=== PATIENT | female | born 1980 | race Caucasian/White ===

== ENCOUNTER 2016-10-08 19:15 | Emergency (ER) | payer SELFPAY ==
[~2016-10-08] VITALS: Ht 175.3 cm; Wt 82.0 kg
[~2016-10-08 19:15] MED LIST: ALPR.25 PO; AMPH1TAB29 PO; VORT20TA PO
[2016-10-08 19:17] VITALS: BP 133/92; PULSE 83; RESP 18; TEMP 98.3; O2SAT 100
[2016-10-09 01:54] VITALS: BP 157/93; PULSE 86; RESP 16; TEMP 97.6; O2SAT 100
[2016-10-09] MEDS ORDERED: ZOLO100T PO (01:55)
[2016-10-09 02:59] LABS: BASOPHIL # 0.1 TH/MM3 (0-0.2); BASOPHIL % 0.9 % (0.0-2.0); EOSINOPHIL # 0.1 TH/MM3 (0-0.4); EOSINOPHIL % 0.9 % (0.0-4.0); HEMATOCRIT 41.5 % (35.0-46.0); HEMO FLAGS DIFF FINAL; LYMPH % 37.3 % (9.0-44.0); LYMPHOCYTE # 4.1 TH/MM3 (1.0-4.8); MEAN CELL VOLUME 87.9 FL (80.0-100.0); MEAN CORPUSCULAR HEMOGLOBIN 29.6 PG (27.0-34.0); MEAN CORPUSCULAR HGB CONC 33.7 % (32.0-36.0); MONO % 5.8 % (0.0-8.0); NEUT % 55.1 % (16.0-70.0); PLATELET COUNT 287 TH/MM3 (150-450); RED BLOOD COUNT 4.72 MIL/MM3 (4.00-5.30); WHITE BLOOD COUNT 10.9 TH/MM3 (4.0-11.0)
[2016-10-09] MEDS ORDERED: ONDANSETRON HCL 4 MG/2 ML VIAL IV ONE (03:00)
[2016-10-09] MEDS ORDERED: SODIUM CHLOR 0.9% 1000 ML INJ 1,000 ML IV ONE (03:00)
--- NOTE | 2016-10-09 03:02 | RADRPT ---
EXAM DATE/TIME: 10/09/2016 02:47 [facility] COMPARISON: CT ABDOMEN & PELVIS W CONTRAST, June 13, 2016, 20:53. INDICATIONS : Patient has had blood in stool and abdominal pain for two months. MEDICAL HISTORY : None. SURGICAL HISTORY : None. ENCOUNTER: Initial ACUITY: 2 months PAIN SCORE: 5/10 LOCATION: Bilateral Abdomen. FINDINGS: Supine and upright views of the abdomen were performed. The abdominal bowel gas pattern is normal. No air fluid levels are seen. No abnormal masses, calcifications, or organomegaly is seen. The visu alized lower lungs are clear. No evidence of free intraperitoneal gas. The osseous structures are u nremarkable. CONCLUSION: Normal examination. Miguel Ángel Martins MD on October 09, 2016 at 3:00 Board Certified Radiologist. This report was verified electronically.
[2016-10-09 03:24] LABS: ALKALINE PHOSPHATASE 108 U/L (45-117); TOTAL BILIRUBIN ADULT 0.5 MG/DL (0.2-1.0)
[2016-10-09 03:31] LABS: ALT (GPT) 24 U/L (10-53); ANION GAP 7 MEQ/L (5-15); AST (GOT) 22 U/L (15-37); BICARBONATE 26.8 MEQ/L (21.0-32.0); BLOOD UREA NITROGEN 7 MG/DL (7-18); CHLORIDE 105 MEQ/L (98-107); GLOMERULAR FILTRATION RATE 75 ML/MIN (>89); POTASSIUM 3.7 MEQ/L (3.5-5.1); SODIUM (NA) 139 MEQ/L (136-145)
--- NOTE | 2016-10-09 03:34 | PD ---
HPI Chief Complaint: GI Complaint Time Seen by Provider: 02:05 Travel History International Travel<30 days: No Contact w/Intl Traveler<30days: No Traveled to known affect area: No History of Present Illness HPI The patient is a 35 year old female who presents to the [facility] emergency department with a history of abdominal pain that she reports is been present for the last couple of months. She reports that it has been associated with vomiting, intermittent constipation, and intermittent diarrhea with blood in her stool, blood in her urine, and persistent vaginal bleeding since having a Nexplanon replaced in her arm in April 2016. She reports that with the first Nexplanon she had no vaginal bleeding for 3 years. The patient reports that she is concerned about her symptoms as her mother has been diagnosed with colon cancer. The patient denies having a primary care physician. She reports that she does have a history of kidney stones. She reports that she has never had colonoscopy. The patient reports that she last moved her bowels earlier today. The patient denies any recent fevers, cough, congestion, neck pain, chest pain, shortness of breath, or neurologic symptoms. PFS Past Medical History Narrative Medical The patient's past medical history is significant for kidney stones, anxiety and depression, attention deficit hyperactivity disorder, fibromyalgia, ovarian cysts. Hx Anticoagulant Therapy: No Arthritis: Yes Asthma: No Autoimmune Disease: Yes Anxiety: Yes Depression: Yes Heart Rhythm Problems: No Cancer: No Cardiovascular Problems: No High Cholesterol: No Chemotherapy: No Chest Pain: No Congestive Heart Failure: No COPD: No Cerebrovascular Accident: No Diabetes: No Diminished Hearing: No Endocrine: No Gastrointestinal Disorders: Yes GERD: No Genitourinary: Yes Headaches: No Hiatal Hernia: No Hypertension: No Immune Disorder: No Implanted Vascular Access Dvce: Yes Kidney Stones: Yes Musculoskeletal: Yes Neurologic: Yes Psychiatric: Yes Reproductive: No Respiratory: No Immunizations Current: Yes Migraines: No Radiation Therapy: No Renal Failure: No Seizures: No Sleep Apnea: No Thyroid Disease: No Ulcer: No Tetanus Vaccination: < 5 Years Influenza Vaccination: No ?: Not LMP: IRREGULAR Ovarian Cysts: Yes (3 surgeries) Past Surgical History Abdominal Surgery: Yes (DAVID HERNIA REPAIR A CHILD) Body Medical Devices: NEXAPLON RIGHT ARM. Cardiac Surgery: No Ear Surgery: No Endocrine Surgery: No Eye Surgery: No Genitourinary Surgery: Yes (BILATERAL RENAL STENTS/LITHOTRIPSY) Gynecologic Surgery: Yes (ruptured ovary 02) Hysterectomy: No Oral Surgery: No Thoracic Surgery: No Other Surgery: Yes (BILAT. INGUINAL HERNIA REPAIRS A CHILD) Social History Alcohol Use: No Tobacco Use: No Substance Use: No (Denies illicit drug use) Allergies-Medications (Allergen,Severity, Reaction): Coded Allergies: Tramadol (Verified Allergy, Intermediate, RASH, 10/09/16) *MDRO Multi-Drug Resistant Organism (Verified Adverse Reaction, Unknown, ) MRSA PCR Screen POSITIVE - 08/01/2015 Reported Meds & Prescriptions Reported Meds & Active Scripts Active Bentyl (Dicyclomine HCl) 10 Mg Cap 10 Mg PO TID PRN Zofran Odt (Ondansetron Odt) 4 Mg Tab 4 Mg SL Q6HR PRN Omeprazole 40 Mg Cap 40 Mg PO DAILY Reported Zoloft (Sertraline HCl) 100 Mg Tab 100 Mg PO DAILY Xanax (Alprazolam) 0.25 Mg Tab Unknown Dose PO Q4H PRN Adderall (Amphetamine-Dextroamphetamine) 5 Mg Tab Unknown Dose PO BID Avoid late evening doses. Space doses at least 4 to 6 hours if more than once/day dosing. Review of Systems Except as stated in HPI: all other systems reviewed are Neg General / Constitutional: No: Fever Eyes: No: Visual changes HENT: No: Headaches Cardiovascular: No: Chest Pain or Discomfort Respiratory: No: Shortness of Breath Gastrointestinal: Positive: Nausea, Vomiting, Diarrhea, Abdominal Pain, Hematochezia, Constipation, Changes in Bowel Habits, Indigestion, Loss of Appetite Genitourinary: Positive: Hematuria, Vaginal Bleeding, No: Urgency, Frequency, Dysuria Musculoskeletal: No: Pain Skin: No Rash Neurologic: No: Weakness, Focal Abnormalities, Change in Mentation, Sensory Disturbance Psychiatric: No: Depression Endocrine: No: Polydipsia Hematologic/Lymphatic: No: Easy Bruising Physical Exam Narrative General: The patient is a well-developed well-nourished female in no acute distress. Head and Neck exam: Head is normocephalic atraumatic. Eyes: Pupils are equal round and reactive to light. Nose: Midline septum with pink mucous membranes Mouth: Dentition unremarkable. Moist mucus membranes. Posterior oropharynx is not erythematous. No tonsillar hypertrophy. Uvula midline. Airway patent. Neck: No palpable lymphadenopathy. No nuchal rigidity. No thyromegaly. Cardiovascular: Regular rate and rhythm without murmurs, gallops, or rubs. Lungs: Clear to auscultation bilaterally. No wheezes, rhonchi, or rales. Abdomen: Soft, reported discomfort on palpation of the midepigastric area. No other tenderness on palpation of the quadrants of the abdomen. No guarding, rebound, or rigidity. Normal bowel sounds are audible. No tenderness on palpation of McBurney's point. Negative Mccollum's sign. Extremities: No clubbing, cyanosis, or edema. 2+ pulses in all 4 extremities. Back: No spinous process tenderness to palpation. No costovertebral angle tenderness to palpation. Neurologic Exam: Grossly nonfocal. Skin Exam: No rash noted. Intact skin that is warm and dry. RECTAL EXAM: No masses or tenderness, stool is dark brown. The patient's stool is negative. Data Data Last Documented VS Vital Signs Date Time Temp Pulse Resp B/P Pulse Ox O2 Delivery O2 Flow Rate FiO2 10/09/16 01:54 97.6 86 16 157/93 100 Room Air Orders Complete Blood Count With Diff (10/09/16 02:17) Comprehensive Metabolic Panel (10/09/16 02:17) Lipase (10/09/16 02:17) Urinalysis - C+S If Indicated (10/09/16 02:19) Abdomen, Flat & Upright (10/09/16 02:19) Iv Access Insert/Monitor (10/09/16 02:19) Ecg Monitoring (10/09/16 02:19) Oximetry (10/09/16 02:19) Drug Screen, Random Urine (10/09/16 02:19) Ed Urine Pregnancytest Poc (10/09/16 02:19) Sodium Chlor 0.9% 1000 Ml Inj (Ns 1000 M (10/09/16 03:00) Ondansetron Inj (Zofran Inj) (10/09/16 03:00) C-Reactive Protein (Crp) (10/09/16 02:45) Ct Abd/Pel W/O Iv Contrast (10/09/16 03:28) Acetaminophen (Tylenol) (10/09/16 03:45) Acetamin-Hydrocod 325-5 Mg ([place] 5-325 (10/09/16 05:00) Labs Laboratory Tests Test 10/09/16 10/09/16 02:45 04:15 White Blood Count 10.9 TH/MM3 Red Blood Count 4.72 MIL/MM3 Hemoglobin 14.0 GM/DL Hematocrit 41.5 % Mean Corpuscular Volume 87.9 FL Mean Corpuscular Hemoglobin 29.6 PG Mean Corpuscular Hemoglobin 33.7 % Concent Red Cell Distribution Width 15.0 % Platelet Count 287 TH/MM3 Mean Platelet Volume 7.9 FL Neutrophils (%) (Auto) 55.1 % Lymphocytes (%) (Auto) 37.3 % Monocytes (%) (Auto) 5.8 % Eosinophils (%) (Auto) 0.9 % Basophils (%) (Auto) 0.9 % Neutrophils # (Auto) 6.0 TH/MM3 Lymphocytes # (Auto) 4.1 TH/MM3 Monocytes # (Auto) 0.6 TH/MM3 Eosinophils # (Auto) 0.1 TH/MM3 Basophils # (Auto) 0.1 TH/MM3 CBC Comment DIFF FINAL Differential Comment Sodium Level 139 MEQ/L Potassium Level 3.7 MEQ/L Chloride Level 105 MEQ/L Carbon Dioxide Level 26.8 MEQ/L Anion Gap 7 MEQ/L Blood Urea Nitrogen 7 MG/DL Creatinine 0.85 MG/DL Estimat Glomerular Filtration 75 ML/MIN Rate Random Glucose 80 MG/DL Calcium Level 9.4 MG/DL Total Bilirubin 0.5 MG/DL Aspartate Amino Transf 22 U/L (AST/SGOT) Alanine Aminotransferase 24 U/L (ALT/SGPT) Alkaline Phosphatase 108 U/L C-Reactive Protein 0.40 MG/DL Total Protein 7.7 GM/DL Albumin 4.3 GM/DL Lipase 148 U/L Urine Color YELLOW Urine Turbidity CLEAR Urine pH 7.0 Urine Specific [place] 1.007 Urine Protein NEG mg/dL Urine Glucose (UA) NEG mg/dL Urine Ketones NEG mg/dL Urine Occult Blood NEG Urine Nitrite NEG Urine Bilirubin NEG Urine Urobilinogen LESS THAN 2.0 MG/DL Urine Leukocyte Esterase NEG Urine RBC 1 /hpf Urine WBC 1 /hpf Urine Squamous Epithelial 1 /hpf Cells Microscopic Urinalysis Comment CULT NOT INDICATED Urine Opiates Screen NEG Urine Barbiturates Screen NEG Urine Amphetamines Screen NEG Urine Benzodiazepines Screen POS Urine Cocaine Screen NEG Urine Cannabinoids Screen NEG MDM Medical Decision Making Medical Screen Exam Complete: Yes Emergency Medical Condition: Yes Medical Record Reviewed: Yes Interpretation(s) Last Impressions Abdomen/Pelvis CT 10/09/16 0328 Signed Impressions: Service Date/Time: Sunday, October 09, 2016 03:56 - CONCLUSION: Normal examination. Miguel Ángel Martins MD Abdomen X-Ray 10/09/16 0219 Signed Impressions: Service Date/Time: Sunday, October 09, 2016 02:47 - CONCLUSION: Normal examination. Miguel Ángel Martins MD Differential Diagnosis GI bleed, versus colitis, versus inflammatory bowel disease, versus constipation versus gastroenteritis, versus pyelonephritis, versus kidney stone Narrative Course During the course of the patients emergency department visit, the patients history, examination, and differential diagnosis were reviewed with the patient. The patient had IV access obtained and blood work sent for analysis. The patient was placed on a cardiac cath lab radiology technologist with oximetry and blood pressure monitoring. The patient was provided normal saline 1 L IV fluid bolus, Zofran 4 mg IV, Tylenol 650 mg by mouth 1. The patient refused the Tylenol she reports that she has been taking this and it has not helped. The patient was given Lortab 5 mg by mouth 1. The patients laboratory studies were reviewed and remarkable for urinalysis was unremarkable. CBC shows no acute abnormality. Hemoccult testing was negative on rectal exam. CMP is unremarkable. Lipase within normal limits. Radiology studies were reviewed and remarkable for an abdominal flat and upright shows no acute abnormality. CT scan of the abdomen and pelvis showed no acute abnormality. The patient's irregular vaginal bleeding is likely related to the Nexplanon that was placed as the symptoms began after having it placed and this form of control is associated with irregular vaginal bleeding. Regarding the patient's abdominal pain, diarrhea alternating with constipation and blood in her stool, the patient was instructed that her imaging and blood work here today shows no acute abnormality, however I would recommend that she follow up with a electronics technician for colonoscopy. The patient is given the name of the electronics technician on-call for follow-up. The patient is resting comfortably and feels better, is alert and in no distress. The patients results and examination findings were discussed with the patient. The repeat examination is unremarkable and benign. The history, exam, diagnostic testing, and current condition do not suggest any significant pathology to warrant further testing, continued ED treatment, admission, or surgical evaluation at this point. The vital signs have been stable. The patient does not have uncontrollable pain, intractable vomiting, or other significant symptoms. The patient's condition is stable and appropriate for discharge. The patient will pursue further outpatient evaluation with a primary care physician or other designated or consulting physician as indicated in the discharge instructions. The patient expressed understanding and was agreeable with this plan. [facility] Point of Care Internal Pos. & Neg. Controls: Passed Fecal Specimen Occult Blood: Negative Diagnosis Primary Impression: Abdominal pain Qualified Code: R10.84 - Generalized abdominal pain Additional Impression: Dysfunctional uterine bleeding Referrals: Yanely Berkowitz MD 1 week Mona Christianson MD 1 week Patient Instructions: Abdominal Pain (ED), General Instructions Med/Other Pt SpecificInfo: Prescription(s) given Scripts Dicyclomine (Bentyl)10 Mg Cap10 Mg PO TID PRN (PAIN GREATER THAN 5) #12 CAP Ref 0 Prov:Tami Guerra MD 10/09/16 Ondansetron Odt (Zofran Odt)4 Mg Tab4 Mg SL Q6HR PRN (Nausea/Vomiting) #7 TAB Ref 0 Prov:Tami Guerra MD 10/09/16 Omeprazole 40 Mg Cap40 Mg PO DAILY #30 CAP Ref 0 Prov:Tami Guerra MD 10/09/16 Disposition: 01 DISCHARGE HOME Condition: Stable Tami Guerra MD Oct 09, 2016 03:34
[2016-10-09] MEDS ORDERED: ACETAMINOPHEN 325 MG TAB PO ONE (03:45)
--- NOTE | 2016-10-09 04:19 | RADRPT ---
EXAM DATE/TIME: 10/09/2016 03:56 [facility] COMPARISON: CT ABDOMEN & PELVIS W CONTRAST, June 13, 2016, 20:53. INDICATIONS : Abdomen pain past several months with hematuria. ORAL CONTRAST: No oral contrast ingested. RADIATION DOSE: 10.71 CTDIvol (mGy) MEDICAL HISTORY : Renal calculi. SURGICAL HISTORY : None. ENCOUNTER: Initial ACUITY: 3 months PAIN SCALE: 5/10 LOCATION: abdomen TECHNIQUE: Volumetric scanning of the abdomen and pelvis was performed. Using automated exposure control and ad justment of the mA and/or kV according to patient size, radiation dose was kept as low as reasonably achievable to obtain optimal diagnostic quality images. FINDINGS: LOWER LUNGS: The visualized lower lungs are clear. LIVER: Homogeneous density without lesion. There is no dilation of the biliary tree. No calcified gallston es. SPLEEN: Normal size without lesion. PANCREAS: Within normal limits. KIDNEYS: Normal in size and shape. There is no mass, stone, or hydronephrosis. ADRENAL GLANDS: Within normal limits. VASCULAR: There is no aortic aneurysm. BOWEL/MESENTERY: The stomach, small bowel, and colon demonstrate no acute abnormality. There is no free intraperitone al air or fluid. ABDOMINAL WALL: Within normal limits. RETROPERITONEUM: There is no lymphadenopathy. BLADDER: No wall thickening or mass. REPRODUCTIVE: Within normal limits. INGUINAL: There is no lymphadenopathy or hernia. MUSCULOSKELETAL: Within normal limits for patient age. CONCLUSION: Normal examination. Miguel Ángel Martins MD on October 09, 2016 at 4:16 Board Certified Radiologist. This report was verified electronically.
[2016-10-09 04:52] LABS: AMPHETAMINE, URINE NEG (NEG); BARBITURATES, URINE NEG (NEG); COCAINE, URINE NEG (NEG)
[2016-10-09 04:54] LABS: BLOOD, URINE NEG (NEG); COMMENT (UR) CULT NOT INDICATED; CULTURE IF INDICATED CULT NOT INDICATED; GLUCOSE,URINE NEG (NEG); KETONE, URINE NEG (NEG); NITRITE,URINE NEG (NEG); SQUAMOUS EPITHELIAL CELL URINE 1 /hpf (0-5); URINE COLOR YELLOW (YELLW/STRAW)
[2016-10-09] MEDS ORDERED: ZOFR4TAB3 SL (04:57)
[2016-10-09] MEDS ORDERED: OMEP40CA2 PO (04:57)
[2016-10-09] MEDS ORDERED: DICY10 PO (04:57)
[2016-10-09] MEDS ORDERED: ACETAMINOPHEN/HYDROcodone 325 MG/5 MG TAB PO ONE (05:00)
== END 2016-10-09 05:15 | disposition home or self-care (01) ==
LOC: NEPE 19:15
DX: R10.84 Generalized abdominal pain (principal); N93.8 Other specified abnormal uterine and vaginal bleeding; R11.10 Vomiting, unspecified; Z87.442 Personal history of urinary calculi; M79.7 Fibromyalgia
CPT/HCPCS: 74020; 74176; 80053; 80307; 81001; 83690; 84703; 85025; 86140; 96361; 96374; 99284; J2405; J7030

== ENCOUNTER 2017-06-03 18:29 | Emergency (ER) | payer MEDICARE ==
[~2017-06-03] VITALS: Ht 175.3 cm; Wt 84.8 kg
[~2017-06-03 18:29] MED LIST changes: +DICY10 PO; +OMEP40CA2 PO; -VORT20TA PO; +ZOFR4TAB3 SL; +ZOLO100T PO
[2017-06-03 18:42] VITALS: BP 157/84; PULSE 95; RESP 16; TEMP 99.7; O2SAT 97
[2017-06-03] MEDS ORDERED: RISP1 PO (18:53)
[2017-06-03] MEDS ORDERED: TRAZ1TAB45 PO (18:53)
[2017-06-03] MEDS ORDERED: AUGM875T3 PO (19:07)
[2017-06-03] MEDS ORDERED: MAGICPED SWISH-SWAL (19:07)
--- NOTE | 2017-06-03 19:21 | PD ---
HPI Chief Complaint: Respiratory Symptoms Time Seen by Provider: 18:49 Travel History International Travel<30 days: No Contact w/Intl Traveler<30days: No Traveled to known affect area: No History of Present Illness HPI 36-year-old female presents to the emergency room for evaluation of a mildly productive cough for the past 2 weeks. Patient states this started off as an upper respiratory infection with congestion, body aches, sore throat, and cough but seems to have worsened. Her psychiatrist prescribed her ciprofloxacin for upper respiratory infection patient states that has not improved her symptoms at all. She's been taking multiple easa-plv-gomyufa medications including DayQuil, NyQuil, cough drops, and Robitussin. She reports feeling feverish and chilled but she has not actually taken her temperature. No nausea or vomiting. No chronic medical conditions other than anxiety. She denies history of COPD or asthma. Patient smokes less than one pack of cigarettes per day. PFSH Past Medical History Hx Anticoagulant Therapy: No Arthritis: Yes Asthma: No Autoimmune Disease: Yes Anxiety: Yes Depression: Yes Heart Rhythm Problems: No Cancer: No Cardiovascular Problems: No High Cholesterol: No Chemotherapy: No Chest Pain: No Congestive Heart Failure: No COPD: No Cerebrovascular Accident: No Diabetes: No Diminished Hearing: No Endocrine: No Gastrointestinal Disorders: Yes GERD: No Genitourinary: Yes Headaches: No Hiatal Hernia: No Hypertension: No Immune Disorder: No Implanted Vascular Access Dvce: Yes Kidney Stones: Yes Musculoskeletal: Yes Neurologic: Yes Psychiatric: Yes Reproductive: No Respiratory: No Immunizations Current: Yes Migraines: No Radiation Therapy: No Renal Failure: No Seizures: No Sleep Apnea: No Thyroid Disease: No Ulcer: No ?: Not LMP: 1 1/2 months ago on control Ovarian Cysts: Yes (3 surgeries) Past Surgical History Abdominal Surgery: Yes (DAVID HERNIA REPAIR A CHILD) Body Medical Devices: NEXAPLON RIGHT ARM. Cardiac Surgery: No Ear Surgery: No Endocrine Surgery: No Eye Surgery: No Genitourinary Surgery: Yes (BILATERAL RENAL STENTS/LITHOTRIPSY) Gynecologic Surgery: Yes (ruptured ovary 02) Hysterectomy: No Oral Surgery: No Thoracic Surgery: No Other Surgery: Yes (BILAT. INGUINAL HERNIA REPAIRS A CHILD) Social History Alcohol Use: No Tobacco Use: Yes Substance Use: No (Denies illicit drug use) Allergies-Medications (Allergen,Severity, Reaction): Coded Allergies: tramadol (Unverified Allergy, Intermediate, RASH, 06/03/17) *MDRO Multi-Drug Resistant Organism (Verified Adverse Reaction, Unknown, 06/03/17) MRSA PCR Screen POSITIVE - 08/01/2015 Reported Meds & Prescriptions Reported Meds & Active Scripts Active Augmentin (Amoxicillin-Clavulanate) 875-125 Mg Tab 1 Tab PO BID Magic Mouthwash Pediatric/Adult Liq (Lidocaine/Diphenhydr/Alum/Mg/Simeth) 60 Ml Susp 5 Ml SWISH-SWAL ACHS Each 5mL contains: Diphenydramine 4.5mg, Viscous Lidocaine 2% 10mg, Maalox Advanced Regular Strength 2.7ml Reported Risperdal (Risperidone) 1 Mg Tab 1 Mg PO HS Trazodone (Trazodone HCl) 150 Mg Tablet 150 Mg PO HS Xanax (Alprazolam) 0.25 Mg Tab 1 Mg PO Q4H PRN Adderall (Amphetamine-Dextroamphetamine) 5 Mg Tab 30 Mg PO BID Avoid late evening doses. Space doses at least 4 to 6 hours if more than once/day dosing. Review of Systems Except as stated in HPI: all other systems reviewed are Neg Physical Exam Narrative GENERAL: Well-nourished, well-developed female in no acute distress. Afebrile. Ambulatory. SKIN: Focused skin assessment warm/dry. HEAD: Normocephalic. EYES: No scleral icterus. No injection or drainage. ENT: Mucosa pink and moist. Very mild erythema without edema or exudates. No uvular edema. No uvular, palatal, or tonsillar deviation. Airway patent. Nasal turbinates appear normal without nasal blood, purulent drainage or septal hematoma. EARS: Bilateral pinnae and external canals appear within normal limits. Bilateral tympanic membranes without erythema or perforation. Right tympanic membrane is dull. NECK: Supple, trachea midline. No JVD or lymphadenopathy. CARDIOVASCULAR: Regular rate and rhythm without murmurs, gallops, or rubs. RESPIRATORY: Breath sounds equal bilaterally. No accessory muscle use. No crackles, rales, wheezes, or rhonchi. Data Data Last Documented VS Vital Signs Date Time Temp Pulse Resp B/P (MAP) Pulse Ox O2 Delivery O2 Flow Rate FiO2 06/03/17 18:42 99.7 95 16 157/84 ([phone] 97 [facility] Medical Decision Making Medical Screen Exam Complete: Yes Emergency Medical Condition: Yes Medical Record Reviewed: Yes Differential Diagnosis Sinusitis, bronchitis, upper respiratory infection, pneumonia Narrative Course 36-year-old female presents to the emergency room for evaluation of mildly productive cough, congestion, sore throat, and body aches for the past 2 weeks. Patient states her symptoms have progressively been worsening. She feels feverish at home but has not actually taken her temperature. Physical exam is reassuring. No evidence of otitis media or streptococcal pharyngitis. Lungs sounds are clear and equal bilaterally. Vital signs stable. Patient is likely coughing from postnasal drip as her lungs are clear. Given duration and acute worsening of symptoms, she'll be treated for sinusitis with Augmentin. Told to follow up with a primary care physician or return for worsening symptoms. She understands and agrees to plan. Diagnosis Primary Impression: Sinusitis Qualified Codes: J01.00 - Acute maxillary sinusitis, unspecified Additional Instructions: Rest and drink plenty of fluids. Augmentin as directed, until gone. Magic mouthwash as directed, as needed for sore throat. Follow-up with a primary care physician. Return to the emergency room for worsening symptoms. Med/Other Pt SpecificInfo: Prescription(s) given Scripts Amoxicillin-Clavulanate (Augmentin) 875-125 Mg Tab 1 TAB PO BID for Infection, #14 TAB 0 Refills Prov: Rossy Pearl MD 06/03/17 Gnjxhpepbrfvlle-Nrqjbdmbl-Ixc-Alum-Simeth Liq (Magic Mouthwash Pediatric/Adult Liq) 60 Ml Susp 5 ML SWISH-SWAL ACHS for Mouth sores, #60 ML 0 Refills Each 5mL contains: Diphenydramine 4.5mg, Viscous Lidocaine 2% 10mg, Maalox Advanced Regular Strength 2.7ml Prov: Rossy Pearl MD 06/03/17 Disposition: 01 DISCHARGE HOME Condition: Stable Krissy Hendrickson Jun 03, 2017 19:21
[2017-06-03 19:23] VITALS: PULSE 90; RESP 18; TEMP 99.4; O2SAT 94
[2017-06-03] MEDS ORDERED: AMOX875T PO (19:32)
== END 2017-06-03 19:38 | disposition home or self-care (01) ==
LOC: PHEFT 18:29
DX: J01.00 Acute maxillary sinusitis, unspecified (principal); F17.210 Nicotine dependence, cigarettes, uncomplicated; Z87.442 Personal history of urinary calculi
CPT/HCPCS: 99284

== ENCOUNTER 2017-06-25 21:18 | Emergency (ER) | payer MEDICARE ==
[~2017-06-25] VITALS: Ht 175.3 cm; Wt 84.9 kg
[~2017-06-25 21:18] MED LIST changes: +AMOX875T PO; +AUGM875T3 PO; -DICY10 PO; +MAGICPED SWISH-SWAL; -OMEP40CA2 PO; +RISP1 PO; +TRAZ1TAB45 PO; -ZOFR4TAB3 SL; -ZOLO100T PO
[2017-06-25 21:23] VITALS: BP 144/81; PULSE 81; RESP 16; TEMP 99.6; O2SAT 100
--- NOTE | 2017-06-25 21:51 | PD ---
HPI Chief Complaint: ENT Complaint Time Seen by Provider: 21:34 Travel History International Travel<30 days: No Contact w/Intl Traveler<30days: No Traveled to known affect area: No History of Present Illness HPI 36-year-old female presents to the department for bilateral ear pain and sinus pain for approximately 1 month. States that she has received multiple antibiotics for this but nothing has seemed to work. She initially received Cipro, then Augmentin, then Bactrim. She is on her last day of Bactrim. States she has intermittent stabbing pain to her right ear, right sided frontal headache, and sinus pressure. States she also has popping in her ear associated with moving her jaw. Denies placing foreign objects in her ear. She has used ear drops for the last couple of days from an 'old prescription' containing polymixin. She has subjective fevers. She has been taking OTC ibuprofen 'like candy' because of her pain. Denies visual changes, jaw pain, chest pain, shortness of breath, nausea, vomiting, diarrhea. PFSH Past Medical History Hx Anticoagulant Therapy: No Arthritis: Yes Asthma: No Autoimmune Disease: Yes Anxiety: Yes Depression: Yes Heart Rhythm Problems: No Cancer: No Cardiovascular Problems: No High Cholesterol: No Chemotherapy: No Chest Pain: No Congestive Heart Failure: No COPD: No Cerebrovascular Accident: No Diabetes: No Diminished Hearing: No Endocrine: No Gastrointestinal Disorders: Yes GERD: No Genitourinary: Yes Headaches: No Hiatal Hernia: No Hypertension: No Immune Disorder: No Implanted Vascular Access Dvce: Yes Kidney Stones: Yes Musculoskeletal: Yes Neurologic: Yes Psychiatric: Yes Reproductive: No Respiratory: No Immunizations Current: Yes Migraines: No Radiation Therapy: No Renal Failure: No Seizures: No Sleep Apnea: No Thyroid Disease: No Ulcer: No Influenza Vaccination: No ?: Not Ovarian Cysts: Yes (3 surgeries) Past Surgical History Abdominal Surgery: Yes (DAVDI HERNIA REPAIR A CHILD) Body Medical Devices: NEXAPLON RIGHT ARM. Cardiac Surgery: No Ear Surgery: No Endocrine Surgery: No Eye Surgery: No Genitourinary Surgery: Yes (BILATERAL RENAL STENTS/LITHOTRIPSY) Gynecologic Surgery: Yes (ruptured ovary 02) Hysterectomy: No Oral Surgery: No Thoracic Surgery: No Other Surgery: Yes (BILAT. INGUINAL HERNIA REPAIRS A CHILD) Social History Alcohol Use: No Tobacco Use: Yes Substance Use: No (Denies illicit drug use) Allergies-Medications (Allergen,Severity, Reaction): Coded Allergies: tramadol (Unverified Allergy, Intermediate, RASH, 06/03/17) *MDRO Multi-Drug Resistant Organism (Verified Adverse Reaction, Unknown, 06/03/17) MRSA PCR Screen POSITIVE - 08/01/2015 Reported Meds & Prescriptions Reported Meds & Active Scripts Active Diclofenac Sodium DR (Diclofenac Sodium) 75 Mg Tabdr 75 Mg PO BID Clindamycin (Clindamycin HCl) 300 Mg Cap 300 Mg PO TID 10 Days Medrol Dosepak (Methylprednisolone) 4 Mg Dspk 4 Mg PO DIRECTED Per Pharmacist direction Amoxicillin 875 Mg Tab 875 Mg PO BID 7 Days Augmentin (Amoxicillin-Clavulanate) 875-125 Mg Tab 1 Tab PO BID Magic Mouthwash Pediatric/Adult Liq (Lidocaine/Diphenhydr/Alum/Mg/Simeth) 60 Ml Susp 5 Ml SWISH-SWAL ACHS Each 5mL contains: Diphenydramine 4.5mg, Viscous Lidocaine 2% 10mg, Maalox Advanced Regular Strength 2.7ml Reported Risperdal (Risperidone) 1 Mg Tab 1 Mg PO HS Trazodone (Trazodone HCl) 150 Mg Tablet 150 Mg PO HS Xanax (Alprazolam) 0.25 Mg Tab 1 Mg PO Q4H PRN Adderall (Amphetamine-Dextroamphetamine) 5 Mg Tab 30 Mg PO BID Avoid late evening doses. Space doses at least 4 to 6 hours if more than once/day dosing. Review of Systems Except as stated in HPI: all other systems reviewed are Neg Physical Exam Narrative GENERAL: well developed well nourished in mild distress SKIN: Focused skin assessment warm/dry. HEAD: Atraumatic. Normocephalic. EYES: Pupils equal and round. No scleral icterus. No injection or drainage. ENT: No nasal bleeding or discharge. Mucous membranes pink and moist. Superior portion of right ear canal with scant dried blood, erythematous, TM not intact. Left ear canal mildly erythematous without discharge. TM intact, dull. Left ear: TM intact, non erythematous. no air/fluid level. NECK: Trachea midline. No JVD. No nuchal rigidity. Anterior cervical lymphadenopathy. CARDIOVASCULAR: Regular rate and rhythm. No murmur appreciated. RESPIRATORY: No accessory muscle use. Clear to auscultation. Breath sounds equal bilaterally. GASTROINTESTINAL: Abdomen soft, non-tender, nondistended. Hepatic and splenic margins not palpable. MUSCULOSKELETAL: No obvious deformities. No clubbing. No cyanosis. No edema. NEUROLOGICAL: Awake and alert. No obvious cranial nerve deficits. Motor grossly within normal limits. Normal speech. PSYCHIATRIC: Appropriate mood and affect; irritable. Data Data Last Documented VS Vital Signs Date Time Temp Pulse Resp B/P (MAP) Pulse Ox O2 Delivery O2 Flow Rate FiO2 06/25/17 23:28 18 06/25/17 23:27 75 127/71 (89) 99 Room Air 06/25/17 21:23 99.6 Orders Orders Methylprednisolone So Succ Inj (Solumedr (06/25/17 22:15) Ed Discharge Order (06/25/17 22:26) Acetamin-Hydrocod 325-5 Mg ([place] 5-325 (06/25/17 23:00) MDM Medical Decision Making Medical Screen Exam Complete: Yes Emergency Medical Condition: Yes Differential Diagnosis Acute bacterial sinusitis versus allergic rhinitis versus viral sinusitis Narrative Course 36-year-old female presents to emergency department with right-sided sinus pain and bilateral ear pain for 1 month. Patient has had multiple antibiotics to include Bactrim, Augmentin, and Cipro without relief. Patient had follow-up with her primary care physician however, her condition has not improved. Pt is unable to tell me the dates of her appointments but tells me these antibiotic courses were roughly 7 days each. During my interview, pt denied putting objects into her ears but told the nurse she put a toothpick in her ear to try to 'pop whatever was in there' then developed bloody discharge. Physical exam demonstrated a sinus infection. TTP especially to right frontal sinus. Right TM does not appear intact. I suspect that the abx courses were not long enough to completely treat this developing sinusitis. I also suspect pt perforated her eardrum with a toothpick. Clindamycin and medrol dose pack outpatient. Stop ear drops and Bactrim. Pt requested pain medication for her pain. I offered an NSAIDs outpatient and gave her hydrocodone 5-325mg and solumedrol in the ED. I explained to her that she needed to go to an ENT specialist for evaluation. Advised to return for worsening symptoms. Diagnosis Primary Impression: Sinusitis Qualified Codes: J01.10 - Acute frontal sinusitis, unspecified Additional Impression: Tympanic membrane irritation Qualified Codes: H73.91 - Unspecified disorder of tympanic membrane, right ear Referrals: Ear / Nose / Throat Specialist Additional Instructions: Follow-up with an remote sensing research scientist within 1 week. Take all medications as prescribed Scripts Diclofenac Sodium DR (Diclofenac Sodium DR) 75 Mg Tabdr 75 MG PO BID, #14 TAB 0 Refills Prov: Sharon Key MD 06/25/17 Clindamycin (Clindamycin) 300 Mg Cap 300 MG PO TID for Infection for 10 Days, #30 CAP 0 Refills Prov: Sharon Key MD 06/25/17 Methylprednisolone Dosepak (Medrol Dosepak) 4 Mg Dspk 4 MG PO DIRECTED, #1 DSPK 0 Refills Per Pharmacist direction Prov: Sharon Key MD 06/25/17 Disposition: 01 DISCHARGE HOME Condition: Stable Doris Cornejo Jun 25, 2017 21:51
[2017-06-25] MEDS ORDERED: MEDR4PAK PO (21:53)
[2017-06-25] MEDS ORDERED: CLIN1CAP6 PO (21:53)
[2017-06-25] MEDS ORDERED: methylPREDNISolone SOD SUCC 125 MG/2 ML VIAL IM ONE (22:15)
[2017-06-25] MEDS ORDERED: DICL75TA PO (22:25)
[2017-06-25] MEDS ORDERED: ACETAMINOPHEN/HYDROcodone 325 MG/5 MG TAB PO ONE (23:00)
[2017-06-25 23:27] VITALS: BP 127/71; PULSE 75; RESP 18; O2SAT 99
[2017-06-25 23:28] VITALS: RESP 18
== END 2017-06-25 23:29 | disposition home or self-care (01) ==
LOC: PHEFT 21:18
DX: J01.10 Acute frontal sinusitis, unspecified (principal); H73.91 Unspecified disorder of tympanic membrane, right ear; Z72.0 Tobacco use
CPT/HCPCS: 96372; 99284; J2930

== ENCOUNTER 2017-08-22 10:43 | Emergency (ER) | payer MEDICARE, OTHER ==
[~2017-08-22] VITALS: Ht 175.3 cm; Wt 80.0 kg
[~2017-08-22 10:43] MED LIST changes: +CLIN300C5 PO; +DICL75TA PO; +MEDR4PAK PO; +TRAZ1TAB14 PO; -TRAZ1TAB45 PO
[2017-08-22 10:45] VITALS: BP 110/74; PULSE 91; RESP 12; TEMP 99; O2SAT 98
--- NOTE | 2017-08-22 11:31 | PD ---
HPI Chief Complaint: Abdominal Pain Time Seen by Provider: 11:20 Travel History International Travel<30 days: No Contact w/Intl Traveler<30days: No Traveled to known affect area: No History of Present Illness HPI 36-year-old female presents to emergency department complaining of the umbilicus for 9 months. Patient states that she 'just woke up with the bleeding ' and has been evaluated by [facility] and her primary care physician but states "nothing has been done". Patient says she has had a barium study but does not know the results of this. Patient states she has not had an ultrasound or CAT scan of her abdomen. Says she has had a fever of 100.6 control with Tylenol and Motrin. Patient states that she has intermittent bleeding with a "pulling sensation" whenever she moves. Patient describes her pain as "a knife" whenever she moves. States that her pain is moderate to severe and is concerned for a serious condition. States she has felt nauseous for 9 months. She is unable to tell me her last menstrual period as she has had an next been on since 2016 placed by her marine electrician helper. Patient vomiting or diarrhea. Her surgical history is consistent for a exploratory laparoscopy for ovarian cyst 2 years ago. Denies any other medical issues. PFSH Past Medical History Hx Anticoagulant Therapy: No Arthritis: Yes Asthma: No Autoimmune Disease: Yes Anxiety: Yes Depression: Yes Heart Rhythm Problems: No Cancer: No Cardiovascular Problems: No High Cholesterol: No Chemotherapy: No Chest Pain: No Congestive Heart Failure: No COPD: No Cerebrovascular Accident: No Diabetes: No Diminished Hearing: No Endocrine: No Gastrointestinal Disorders: Yes GERD: No Genitourinary: Yes Headaches: No Hiatal Hernia: No Hypertension: No Immune Disorder: No Implanted Vascular Access Dvce: No Kidney Stones: Yes Musculoskeletal: Yes Neurologic: Yes Psychiatric: Yes Reproductive: No Respiratory: No Immunizations Current: Yes Migraines: No Radiation Therapy: No Renal Failure: No Seizures: No Sleep Apnea: No Thyroid Disease: No Ulcer: No Influenza Vaccination: No ?: Unknown LMP: no period, i have implant Ovarian Cysts: Yes (3 surgeries) Past Surgical History Abdominal Surgery: Yes (DAVID HERNIA REPAIR A CHILD) Body Medical Devices: NEXAPLON RIGHT ARM. Cardiac Surgery: No Ear Surgery: No Endocrine Surgery: No Eye Surgery: No Genitourinary Surgery: Yes (BILATERAL RENAL STENTS/LITHOTRIPSY) Gynecologic Surgery: Yes (ruptured ovary 02) Hysterectomy: No Neurologic Surgery: No Oral Surgery: No Thoracic Surgery: No Other Surgery: Yes (BILAT. INGUINAL HERNIA REPAIRS A CHILD) Social History Alcohol Use: No Tobacco Use: Yes (2ppd) Substance Use: No (Denies illicit drug use) Allergies-Medications (Allergen,Severity, Reaction): Coded Allergies: tramadol (Unverified Allergy, Intermediate, RASH, 08/22/17) *MDRO Multi-Drug Resistant Organism (Verified Adverse Reaction, Unknown, 08/22/17) MRSA PCR Screen POSITIVE - 08/01/2015 Reported Meds & Prescriptions Reported Meds & Active Scripts Active Keflex (Cephalexin) 500 Mg Cap 500 Mg PO Q8H [address] (Diclofenac Sodium) 75 Mg Tabdr 75 Mg PO BID Clindamycin (Clindamycin HCl) 300 Mg Cap 300 Mg PO TID 10 Days Medrol Dosepak (Methylprednisolone) 4 Mg Dspk 4 Mg PO DIRECTED Per Pharmacist direction Amoxicillin 875 Mg Tab 875 Mg PO BID 7 Days Augmentin (Amoxicillin-Clavulanate) 875-125 Mg Tab 1 Tab PO BID Magic Mouthwash Pediatric/Adult Liq (Lidocaine/Diphenhydr/Alum/Mg/Simeth) 60 Ml Susp 5 Ml SWISH-SWAL ACHS Each 5mL contains: Diphenydramine 4.5mg, Viscous Lidocaine 2% 10mg, Maalox Advanced Regular Strength 2.7ml Reported Risperdal (Risperidone) 1 Mg Tab 1 Mg PO HS Trazodone (Trazodone HCl) 150 Mg Tablet 150 Mg PO HS Xanax (Alprazolam) 0.25 Mg Tab 1 Mg PO Q4H PRN Adderall (Amphetamine-Dextroamphetamine) 5 Mg Tab 30 Mg PO BID Avoid late evening doses. Space doses at least 4 to 6 hours if more than once/day dosing. Review of Systems Except as stated in HPI: all other systems reviewed are Neg Physical Exam Narrative GENERAL: Well-developed well-nourished in mild distress, anxious SKIN: Focused skin assessment warm/dry. HEAD: Atraumatic. Normocephalic. EYES: Pupils equal and round. No scleral icterus. No injection or drainage. ENT: No nasal bleeding or discharge. Mucous membranes pink and moist. NECK: Trachea midline. No JVD. CARDIOVASCULAR: Regular rate and rhythm. No murmur appreciated. RESPIRATORY: No accessory muscle use. Clear to auscultation. Breath sounds equal bilaterally. GASTROINTESTINAL: Abdomen soft, nondistended. Normoactive bowel sounds No masses. Umbilicus-appears to be fresh blood in the umbilicus without obvious wound. No exudate. Erythema, fluctuance, or induration. Tender to palpation. MUSCULOSKELETAL: No obvious deformities. No clubbing. No cyanosis. No edema. NEUROLOGICAL: Awake and alert. No obvious cranial nerve deficits. Motor grossly within normal limits. Normal speech. PSYCHIATRIC: Appropriate mood and affect; insight and judgment normal. Data Data Last Documented VS Vital Signs Date Time Temp Pulse Resp B/P (MAP) Pulse Ox O2 Delivery O2 Flow Rate FiO2 08/22/17 15:13 76 16 126/72 (90) 100 08/22/17 10:45 99.0 Orders Orders Acetamin-Hydrocod 325-5 Mg ([place] 5-325 (08/22/17 12:30) Ct Abd/Pel W Iv Contrast(Rout) (08/22/17 ) Iohexol 350 Inj (Omnipaque 350 Inj) (08/22/17 14:19) Ed Discharge Order (08/22/17 14:56) Acetamin-Hydrocod 325-5 Mg ([place] 5-325 (08/22/17 15:15) MDM Medical Decision Making Medical Screen Exam Complete: Yes Emergency Medical Condition: Yes Differential Diagnosis Self-inflicted wound, abdominal wall abscess, cellulitis, malingering, laceration Narrative Course 36-year-old female presents to emergency department complaining of the umbilicus for 9 months. Patient states that she 'just woke up with the bleeding ' and has been evaluated by [facility] and her primary care physician but states "nothing has been done". Patient says she has had a barium study but does not know the results of this. Patient states she has not had an ultrasound or CAT scan of her abdomen. Says she has had a fever of 100.6 control with Tylenol and Motrin. Patient states that she has intermittent bleeding with a "pulling sensation" whenever she moves. Patient describes her pain as "a knife" whenever she moves. States that her pain is moderate to severe and is concerned for a serious condition. States she has felt nauseous for 9 months. She is unable to tell me her last menstrual period as she has had an next been on since 2016 placed by her marine electrician helper. Patient vomiting or diarrhea. Her surgical history is consistent for a exploratory laparoscopy for ovarian cyst 2 years ago. Denies any other medical issues. Vital signs stable Patient states she has not been evaluated for this so we will perform a CT of the abdomen. Concern for abscess versus laceration. EFORSCE reviewed. Appears patient receives Adderall and clonazepam frequently which was omitted upon my interview with the patient. Hydrocodone prescribed occasionally. Hydrocodone 5-325 administered in the emergency department for her pain. I had a low suspicion for significant pathology. I do not feel that labs were necessary at this point is patient's signs, symptoms, and physical exam findings were fairly benign. Last Impressions Abdomen/Pelvis CT 08/22/17 0000 Signed Impressions: Service Date/Time: Friday, August 22, 2017 14:04 - CONCLUSION: 1. No acute abnormality in the abdomen or pelvis. 2. Ancillary findings, as above. Freddy Morgan MD Patient requested pain medication for discharge. Advised that there is no indication for this. Patient asked the nurse as well after I told her this was not indicated. I'm concerned that this is a self-inflicted wound as she states that that she has had this problem for 9 months and "has not been evaluated completely for this". She also told me that her primary care physician continue to give her pain medication because he "could not figure this out". I am concern for drug-seeking behavior because of patient's inconsistent history and physical exam findings today. I do not see any emergent condition today advised patient to return to the emergency department for worsening or persistent symptoms. I strongly advised patient to follow up with primary care physician. Advised on wound care. Diagnosis Primary Impression: Laceration of abdominal wall Qualified Codes: S31.119A - Laceration without foreign body of abdominal wall , unspecified quadrant without penetration into peritoneal cavity, initial encounter Referrals: Primary Care Physician Additional Instructions: Follow up with your primary care physician within 2-3 days. If your symptoms persist or worsen, return to the emergency department. I recommend following up with wound care for your chronic wound. Keep area clean and dry. You may bathe as normal. You may use [id number] triple antibiotic ointments for your injury daily. Change dressings daily. If bleeding starts again, applied pressure and elevate the area. If he developed increased redness, swelling, or pain return to the emergency department. Scripts Cephalexin (Keflex) 500 Mg Cap 500 MG PO Q8H for Infection for 7 Days, #21 CAP 0 Refills Prov: Tyler Nichols MD 08/22/17 Disposition: 01 DISCHARGE HOME Condition: Stable Doris Cornejo Aug 22, 2017 11:31
[2017-08-22] MEDS ORDERED: ACETAMINOPHEN/HYDROcodone 325 MG/5 MG TAB PO ONE ×2 (12:30→15:15)
[2017-08-22 13:51] VITALS: RESP 16
[2017-08-22] MEDS ORDERED: IOHEXOL 350 MG/ML 10 ML VIAL (for RAD DIAG) IVCONTRAST ONE (14:19)
--- NOTE | 2017-08-22 14:38 | RADRPT ---
EXAM DATE/TIME: 08/22/2017 14:04 [facility] COMPARISON: CT ABDOMEN & PELVIS W CONTRAST, June 13, 2016, 20:53. INDICATIONS : Umbilical bleeding for 9 months. IV CONTRAST: 69 cc Omnipaque 350 (iohexol) IV ORAL CONTRAST: Partial prescribed oral contrast ingested. RADIATION DOSE: 7.58 CTDIvol (mGy) MEDICAL HISTORY : Hernia, inguinal. SURGICAL HISTORY : Renal stents, lithotripsy ENCOUNTER: Initial ACUITY: 7 - 11 months PAIN SCALE: 5/10 LOCATION: umbilicus TECHNIQUE: Volumetric scanning of the abdomen and pelvis was performed. Using automated exposure control and ad justment of the mA and/or kV according to patient size, radiation dose was kept as low as reasonably achievable to obtain optimal diagnostic quality images. DICOM format image data is available electro nically for review and comparison. FINDINGS: LOWER LUNGS: Minimal atelectasis versus scarring at the right lung base. LIVER: Focal decreased density adjacent the falciform ligament consistent with focal fatty replacement. Gall bladder is unremarkable by CT. SPLEEN: Normal size without lesion. PANCREAS: Within normal limits. KIDNEYS: Normal in size and shape. There is no mass, stone or hydronephrosis. Subcentimeter cystic lesions in the inferior pole the kidneys are too small to fully characterize. ADRENAL GLANDS: Within normal limits. VASCULAR: There is no aortic aneurysm. BOWEL/MESENTERY: The stomach, small bowel, and colon demonstrate no acute abnormality. Appendix is normal in appearan ce. There is no free intraperitoneal air or fluid. ABDOMINAL WALL: Within normal limits. RETROPERITONEUM: Subcentimeter retroperitoneal nodes do not meet CT size criteria. BLADDER: No wall thickening or mass. REPRODUCTIVE: Within normal limits. INGUINAL: There is no lymphadenopathy or hernia. MUSCULOSKELETAL: Within normal limits for patient age. CONCLUSION: 1. No acute abnormality in the abdomen or pelvis. 2. Ancillary findings, as above. Freddy Morgan MD on August 22, 2017 at 14:27 Board Certified Radiologist. This report was verified electronically.
[2017-08-22] MEDS ORDERED: CEPH-460 PO (14:57)
[2017-08-22 15:13] VITALS: BP 126/72
== END 2017-08-22 15:23 | disposition home or self-care (01) ==
LOC: NEPD 10:43
DX: S31.119A Laceration without foreign body of abdominal wall, unspecified quadrant without penetration into peritoneal cavity, initial encounter (principal); F17.200 Nicotine dependence, unspecified, uncomplicated; X58.XXXA Exposure to other specified factors, initial encounter
CPT/HCPCS: 74177; 99284; Q9967

== ENCOUNTER 2018-05-27 11:38 | Inpatient (IN) ==
[2018-05-27] MEDS ORDERED: Clindamycin 600 mg/NS Premix 600 MG/50 ML PIGGYBACK IV.SIG ONE (12:03)
[2018-05-27] MEDS ORDERED: Morphine Inj 4 MG/ML Vial IV.PUSH ONE ×3 (12:04→16:20)
--- NOTE | 2018-05-27 12:23 | ED ---
HPI General Chief complaint: Animal Bite Stated complaint: spider bite (swollen eye) Time Seen by Provider: 05/27/18 11:48 Source: patient Mode of arrival: ambulatory Limitations: no limitations History of Present Illness HPI narrative: 37 yo female here for evaluation of left facial swelling and pain since yesterday. No injury. Seen at hospital last night and diagnosed with cellulitis and lymphangitis. Given prescriptions and IM dose of antibiotics. Symptoms drastically worsened in the past 12 hours. Pain is 8/10. Cannot open left eye due to swelling. has not taken second dose of bactrim due to not filling it out as it was late last night she was here. Swelling and pain worsening. No visual changes. No trauma. no insect bite but it was thought to be due to this. History of MRSA. Related Data Home Medications Medication Instructions Recorded Confirmed alprazolam [Xanax] 1 mg PO BID 05/27/18 05/27/18 bupropion HCl [Wellbutrin XL] 300 mg PO QAM 05/27/18 05/27/18 pregabalin [Lyrica] 75 mg PO BID 05/27/18 05/27/18 Previous Rx's Medication Instructions Recorded clindamycin HCl 300 mg PO QID 10 Days #80 cap 05/27/18 sulfamethoxazole-trimethoprim 1 tab PO BID 10 Days #20 tab 05/27/18 [Bactrim DS] Allergies Allergy/AdvReac Type Severity Reaction Status Date / Time tramadol Allergy Intermediate RASH Verified 05/27/18 00:06 ketorolac [From Toradol] Allergy Rash Verified 05/27/18 00:06 *MDRO Multi-Drug Resistant AdvReac Unknown Bone Uncoded 05/27/18 00:06 Organism Marrow Suppression Review of Systems ROS: all other systems reviewed are negative [facility] Medical History Medical History History of ADHD (Acute) History of back injury (Acute) Hx of anxiety disorder (Acute) Hx of major depression (Acute) Social History Social History Substance History: No History of Abuse Second Hand Smoke Exposure: Yes Smoking Status: Heavy tobacco smoker Tobacco Type: Cigarettes How Often Do You Have a Drink Containing Alcohol: Never Recent Travel in [facility] within the Last 8 Weeks: No Recent Out of Country Travel within the Last 8 Weeks: No Immunization History Tetanus Immunization: <5 Years Tetanus Immunization Year if Known: 2017 Hx Influenza Vaccine This Season: No Exam Narrative Exam Narrative: GENERAL: SKIN: Warm and dry. Has soft tissue swelling on the upper and lower eyelid. erythematous and very tender to touch. Has stiffness and swelling to the occipital head, anterior neck as well. No TM or ear involvement. Has erythematous vesicle like lesions just above the ear. HEAD: Atraumatic. Normocephalic. EYES: Pupils equal and round. No scleral icterus. No injection or drainage. ENT: No nasal bleeding or discharge. Mucous membranes pink and moist. NECK: Trachea midline. No JVD. CARDIOVASCULAR: Regular rate and rhythm. RESPIRATORY: No accessory muscle use. Clear to auscultation. Breath sounds equal bilaterally. GASTROINTESTINAL: Abdomen soft, non-tender, nondistended. Hepatic and splenic margins not palpable. MUSCULOSKELETAL: Extremities without clubbing, cyanosis, or edema. No obvious deformities. NEUROLOGICAL: Awake and alert. No obvious cranial nerve deficits. Motor grossly within normal limits. Five out of 5 muscle strength in the arms and legs. Normal speech. PSYCHIATRIC: Appropriate mood and affect; insight and judgment normal. Course Initial Documented Vital Signs Temperature 98 F 05/27/18 11:43 Pulse Rate 90 05/27/18 11:43 Respiratory Rate 14 05/27/18 11:43 Blood Pressure 114/63 05/27/18 11:43 Pulse Oximetry 98 05/27/18 11:43 Last Documented Vital Signs Temperature 98 F 05/27/18 11:43 Pulse Rate 90 05/27/18 11:43 Respiratory Rate 14 05/27/18 11:43 Blood Pressure 114/63 05/27/18 11:43 Pulse Oximetry 98 05/27/18 11:43 Medical Decision Making QUIQUE Attestation QUIQUE supervised visit: Yes Attestation: The history, exam, and medical decision-making in the associated mid-level provider note were completed with my assistance. I reviewed and agree with the findings presented. I attest that I had a [id number] encounter with the patient on the same day, and personally performed and documented my assessment and findings in the medical record. *My assessment and Findings: Is a 37-year-old woman who presents to the emergency department unilateral facial swelling and pain, worsening despite outpatient antibiotic therapy. She is a couple small papular lesions along the hairline. She also has a significant amount of hyperesthesia and allodynia on the left side of the scalp. She has some periorbital edema but I do not see any significant warmth, erythema, or induration. She complains of fullness and induration in her neck but I do not really she had this on exam. My suspicion is taken altogether, difficult to completely exclude cellulitis. Given the worsening swelling overnight, will recommend admission for IV antibiotics, add antivirals, reassess. MDM Narrative Medical decision making narrative: 37-year-old female that presents to the ED for evaluation of right-sided facial swelling. Patient was properly examined and was found to have signs and symptoms concerning for cellulitis versus shingles. My attending Dr. Hilario evaluated the patient himself and agrees with plan. Labs and imaging order. Patient was given IV pain medications and clindamycin. Labs and imaging showed elevated inflammatory markers and possible cellulitis per CT report. Patient still not better. Could still be shingles, but cannot exclude worsening cellulitis. recommendation is admission. Patient agreed. My attending Dr Hilario spoke with Dr Delcid who agreed to admission. Patient and family agree with this. Medical Screen Exam Complete: Yes Emergency Medical Condition: Yes Differential Diagnosis Differential Diagnosis: shingles versus cellulitis versus soft tissue swelling versus abscess versus lymphadenopathy Medical Records Medical records reviewed: Yes I reviewed the patient's medical records. Lab Data Lab results reviewed: Yes I reviewed the patient's lab results. Lab results narrative: ESR and CRP elevated. Result diagrams: 05/27/18 12:18 05/27/18 12:18 Lab Results 05/27/18 05/27/18 05/27/18 Range/Units 12:18 12:18 12:18 CBC w Diff Auto diff final WBC 9.1 (4.0-11.0) th/mm3 RBC 4.09 (4.00-5.30) mil/mm3 Hgb 12.4 (11.6-15.3) gm/dL Hct 36.3 (35.0-46.0) % MCV 88.7 (80.0-100.0) fL MCH 30.3 (27.0-34.0) pg MCHC 34.1 (32.0-36.0) % RDW 13.3 (11.6-17.2) % Plt Count 253 (150-450) th/mm3 MPV 7.8 (7.0-11.0) fL Neut % (Auto) 54.5 (16.0-70.0) % Lymph % (Auto) 35.1 (9.0-44.0) % [place] % (Auto) 4.6 (0.0-8.0) % Eos % (Auto) 1.1 (0.0-4.0) % Baso % (Auto) 4.7 H (0.0-2.0) % Neut # (Auto) 5.0 (1.8-7.7) th/mm3 Lymph # (Auto) 3.2 (1.0-4.8) th/mm3 [place] # (Auto) 0.4 (0.0-0.9) th/mm3 Eos # (Auto) 0.1 (0.0-0.4) th/mm3 Baso # (Auto) 0.4 H (0.0-0.2) th/mm3 WBC Differential . Differential Comment . ESR (0-20) mm/hr Sodium 138 (136-145) meq/L Potassium 3.1 L (3.5-5.1) meq/L Chloride 104 (98-107) meq/L Carbon Dioxide 26.4 (21.0-32.0) meq/L Anion Gap 8 (5-15) meq/L BUN 5 L (7-18) mg/dL Creatinine 0.80 (0.50-1.00) mg/dL Estimated GFR 80 L (>89) mL/min Random Glucose 105 (74-106) mg/dL Calcium 8.7 (8.5-10.1) mg/dL C-Reactive Protein 8.62 H (0.00-0.30) mg/dL 05/27/18 Range/Units 12:18 CBC w Diff WBC (4.0-11.0) th/mm3 RBC (4.00-5.30) mil/mm3 Hgb (11.6-15.3) gm/dL Hct (35.0-46.0) % MCV (80.0-100.0) fL MCH (27.0-34.0) pg MCHC (32.0-36.0) % RDW (11.6-17.2) % Plt Count (150-450) th/mm3 MPV (7.0-11.0) fL Neut % (Auto) (16.0-70.0) % Lymph % (Auto) (9.0-44.0) % [place] % (Auto) (0.0-8.0) % Eos % (Auto) (0.0-4.0) % Baso % (Auto) (0.0-2.0) % Neut # (Auto) (1.8-7.7) th/mm3 Lymph # (Auto) (1.0-4.8) th/mm3 [place] # (Auto) (0.0-0.9) th/mm3 Eos # (Auto) (0.0-0.4) th/mm3 Baso # (Auto) (0.0-0.2) th/mm3 WBC Differential Differential Comment ESR 46 H (0-20) mm/hr Sodium (136-145) meq/L Potassium (3.5-5.1) meq/L Chloride (98-107) meq/L Carbon Dioxide (21.0-32.0) meq/L Anion Gap (5-15) meq/L BUN (7-18) mg/dL Creatinine (0.50-1.00) mg/dL Estimated GFR (>89) mL/min Random Glucose (74-106) mg/dL Calcium (8.5-10.1) mg/dL C-Reactive Protein (0.00-0.30) mg/dL Imaging Data Attestation: I personally reviewed and interpreted this imaging study as follows : Radiologist's impression: Face CT 05/27/18 12:08 CONCLUSION: 1. Findings are most consistent with left facial cellulitis and reactive cervical adenopathy. 2. No evidence for abscess at this time. 3. Bilateral maxillary sinus mucosal disease. Discharge Plan Discharge Disposition Patient Disposition: 30 Still Patient Discharge Details Diagnosis: Cellulitis, Acute lymphadenitis Physicians Team ED Provider: Satish Hilario ED Midlevel Provider: Laith Myrick Primary Care Provider: Alvarez Lara Rxs /Orders / Referrals /Forms Prescriptions: No Action alprazolam [Xanax] 1 mg Tablet 1 mg PO BID RF: 0 bupropion HCl [Wellbutrin XL] 300 mg Tablet Extended Release 24 Hr 300 mg PO QAM RF: 0 pregabalin [Lyrica] 75 mg Capsule 75 mg PO BID RF: 0 clindamycin HCl 150 mg capsule 300 mg PO QID 10 Days Qty: 80 RF: 0 sulfamethoxazole-trimethoprim [Bactrim DS] 800-160 mg tablet 1 tab PO BID 10 Days Qty: 20 RF: 0 Status ED Status: With Doctor
[2018-05-27 12:24] LABS: Baso # (Auto) 0.4 th/mm3 (0.0-0.2); Baso % (Auto) 4.7 % (0.0-2.0); Eos # (Auto) 0.1 th/mm3 (0.0-0.4); Eos % (Auto) 1.1 % (0.0-4.0); Hematocrit 36.3 % (35.0-46.0); Hemoglobin 12.4 gm/dL (11.6-15.3); Lymph # (Auto) 3.2 th/mm3 (1.0-4.8); Lymph % (Auto) 35.1 % (9.0-44.0); Mean Corpuscular HGB Conc 34.1 % (32.0-36.0); Mean Corpuscular Hemoglobin 30.3 pg (27.0-34.0); Mean Corpuscular Volume 88.7 fL (80.0-100.0); Mean Platelet Volume 7.8 fL (7.0-11.0); Mono # (Auto) 0.4 th/mm3 (0.0-0.9); Mono % (Auto) 4.6 % (0.0-8.0); Neut % (Auto) 54.5 % (16.0-70.0); Platelet Count 253 th/mm3 (150-450); Red Blood Count 4.09 mil/mm3 (4.00-5.30); Red Cell Distribution Width 13.3 % (11.6-17.2); White Blood Count 9.1 th/mm3 (4.0-11.0)
[2018-05-27 12:35] LABS: Potassium 3.1 meq/L (3.5-5.1)
[2018-05-27] MEDS ORDERED: Morphine Sulfate Inj 2 MG/ML Vial IV.PUSH ONE (12:35)
[2018-05-27 12:38] LABS: Calcium 8.7 mg/dL (8.5-10.1)
[2018-05-27 12:39] LABS: Carbon Dioxide 26.4 meq/L (21.0-32.0)
--- NOTE | 2018-05-27 13:52 | CT ---
EXAM DATE: 05/27/2018 1:18 PM EDT AGE/SEX: 37 years / Female INDICATIONS: Left facial pain and swelling. CLINICAL DATA: This is the patient's initial encounter. Patient reports that signs and symptoms have been present for 1 day and indicates a pain score of 8/10. MEDICAL/SURGICAL HISTORY: None. None. RADIATION DOSE: 29.87 CTDI (mGy) COMPARISON: [facility], CT FACIAL BONES W/O CONTRAST, 12/29/2014. . TECHNIQUE: Contiguous images in the axial and coronal planes were obtained using helical multirow de tector technique with 60 ml Omnipaque 350 (iohexol) nonionic water-soluble contrast as a single exam dose. Using automated exposure control and adjustment of the mA and/or kV according to patient size , radiation dose was kept as low as reasonably achievable to obtain optimal diagnostic quality images . DICOM format image data is available electronically for review and comparison. FINDINGS: Orbits: Inferior preorbital soft tissue swelling and inflammation on the left. Left orbit appears int act. The orbital and infraorbital osseous structures are intact. The retroconal structures have a no rmal configuration. No radiopaque foreign bodies are seen. Nasal Bone: The nasal bone and maxillary spine are intact. Zygomatic Arches: Symmetric without evidence of fracture. Sinuses: The maxillary, ethmoid, and frontal sinuses are intact. No air-fluid levels seen. Mucoperi osteal thickening in the inferior maxillary sinuses, left greater than right. No evidence for bony er osion. Nasal Cavity: The nasal septum is intact and midline. The lacrimal ducts are intact. Soft Tissues: Diffuse stranding throughout the left facial and periorbital soft tissues without foca l drainable fluid collection or enhancing mass. Multiple scattered predominates subcentimeter level 1 , 2, 3 and 4 cervical nodes without evidence for central necrosis. Intracranial: No intracranial air seen. Cribriform Plate: Grossly intact. CONCLUSION: 1. Findings are most consistent with left facial cellulitis and reactive cervical adenopathy. 2. No evidence for abscess at this time. 3. Bilateral maxillary sinus mucosal disease. Electronically signed by: Freddy Morgan MD 05/27/2018 1:51 PM EDT
[2018-05-27] MEDS ORDERED: Vancomycin Consult Pharmacy OTHER PRN (14:58)
[2018-05-27] MEDS ORDERED: Vancomycin Inj 1,000 MG in Sodium Chlor 0.9% Inj 250 ML IV.SIG SCH (14:59)
[2018-05-27] MEDS ORDERED: predniSONE 20 MG Tablet PO ONE (16:00)
[2018-05-27] MEDS ORDERED: Naproxen 250 MG Tablet PO ONE (16:00)
--- NOTE | 2018-05-27 16:32 | P.HPIM ---
History of Present Illness Primary Care Physician: Alvarez Lara History of Present Illness: Mrs. Myrick is a 37-year-old female. She has visited the emergency department yesterday and now today. She reports that she has gradual facial pain, tenderness, and swelling. She feels this may have started as a bug bite just anterior to her left ear. She did not identify a bug, she woke up with a small erythematous and tender area at that site. She has a past history of chickenpox as a child. No leukocytosis is present thus far. She became acutely concerned this morning because her left eye swelled making it difficult to see. All symptoms are on the left side, no symptoms on the right side. Symptoms include the patient's left eye, left cheek, left ear, left posterior scalp, left neck, and left shoulder/trapezius area. This patient smokes approximately 1/2 pack/day. No alcohol abuse. No fevers reported. No other complaints at this time. - Diagnosis (1) Facial cellulitis (2) Cellulitis (3) Acute lymphadenitis Inpatient Certification: I certify that the inpatient services were ordered in accordance with Medicare regulations governing the order. This includes certification that hospital inpatient services are reasonable and necessary and in the case of services not specified as inpatient-only under 42 CFR 419.22(n), that they are appropriately provided as inpatient services in accordance to with the 2-midnight benchmark under 43 CFR 412.3(e) Review of Systems Constitutional: No fevers, no chills no night sweats, no fatigue, no weakness Eyes: No eye pain, no blurry vision, no loss of vision ENT: No sore throat, no ear pain, no rhinorrhea Cardiovascular: No chest pain, no tachycardia, no palpitations, no shortness of breath, no syncope Respiratory: No wheezing, no cough, no shortness of breath Gastrointestinal: No abdominal pain, no black tarry stools, no bright red blood per rectum, no vomiting, no diarrhea Musculoskeletal: No joint pain, no muscle cramps, no stiffness Integumentary: No rash, no ulcers, no drainage, erythema and induration at left face extending to the cheek and neck Neurologic: No sensory loss, no loss of motor function, no dizziness Psychiatric: No behavioral changes, no hallucinations, no suicidal ideations PMFSH - History History Provided By: Patient - Medical History Medical History: Medical History (Last Updated 05/27/18 @ 16:26 by Hayden Delcid MD) History of ADHD History of back injury Hx of anxiety disorder Hx of major depression Nephrolithiasis Nicotine dependence - Surgical History Surgical History: Surgical History (Last Updated 05/27/18 @ 16:26 by Hayden Delcid MD) H/O cystoscopy H/O hernia repair History of removal of ovarian cyst - Family History Family History: Family History (Last Updated 05/27/18 @ 16:26 by Hayden Delcid MD) Mother Colon cancer - Tobacco History Second Hand Smoke Exposure: Yes Tobacco Use In Past 30 Days: Yes Smoking Status: Heavy tobacco smoker Tobacco Type: Cigarettes - Alcohol History How Often Do You Have a Drink Containing Alcohol: Never - Substance Use History Substance History: No History of Abuse - Travel History Recent Travel in the [place] Within the Last 8 Weeks: No Recent Travel Out of the Country Within the Last 8 Weeks: No - Immunization History Tetanus Immunization: <5 Years Tetanus Immunization Year if Known: 2017 Hx Influenza Vaccine This Season: No Medications and Allergies Active Medications: Active Medications Al Hydroxide/Mg Hydroxide (Milk Of Laura Diop) 30 ml PO Q12H PRN PRN Reason: Mild Constipation Vancomycin HCl 1,500 mg/ (Sodium Chloride) 515 mls @ 250 mls/hr IV.SIG ONCE ONE Stop: 05/27/18 19:03 Loratadine (Claritin) 10 mg PO ONCE ONE Stop: 05/27/18 17:01 Loratadine (Claritin) 10 mg PO DAILY [facility] Naproxen (Naprosyn) 250 mg PO BID [facility] Ondansetron HCl (Zofran Inj) 4 mg IV.PUSH Q6H PRN PRN Reason: NAUSEA OR VOMITING Pharmacy Profile Note (Vancomycin Consult Pharmacy) 1 each OTHER UNSCH PRN PRN Reason: Pharmacy to dose Prednisone (Deltasone) 20 mg PO BID [facility] Valacyclovir HCl (Valtrex) 1,000 mg PO Q8HR [facility] Allergies Allergy/AdvReac Type Severity Reaction Status Date / Time tramadol Allergy Intermediate RASH Verified 05/27/18 00:06 ketorolac [From Toradol] Allergy Rash Verified 05/27/18 00:06 *MDRO Multi-Drug Resistant AdvReac Unknown Bone Uncoded 05/27/18 00:06 Organism Marrow Suppression Home Medications Medication Instructions Recorded Confirmed Type alprazolam [Xanax] 1 mg PO BID 05/27/18 05/27/18 History bupropion HCl [Wellbutrin XL] 300 mg PO QAM 05/27/18 05/27/18 History pregabalin [Lyrica] 75 mg PO BID 05/27/18 05/27/18 History Exam Vital signs: Vital Signs 05/27/18 11:43 05/27/18 15:35 Temperature 98 F Pulse Rate 90 73 Respiratory Rate 14 16 Blood Pressure 114/63 106/62 Pulse Oximetry 98 98 Intake & Output 05/26/18 05/27/18 05/27/18 18:59 06:59 18:59 Intake Total 50 / 50 Balance 50 / 50 Weight 80 kg Intake: IV 50 / 50 Cleocin 600 mg/NS Premix 600 mg 50 / 50 In 50 ml @ 100 mls/hr IV.SIG ONCE ONE Rx#:[id number] Narrative: GENERAL: NAD, A&Ox3 HEAD: Induration of left eye significant at left orbit. No scleral edema. Mild edema/induration left cheek, left periauricular, and the upper neck. Lymphadenopathy at left neck. Significant tenderness to palpation at skin of left face. NECK: Supple, trachea midline. No lymphadenopathy. EYES: No scleral icterus. No injection or drainage. CARDIOVASCULAR: Regular rate and rhythm without murmurs, gallops, or rubs. RESPIRATORY: Breath sounds equal bilaterally. No accessory muscle use. GASTROINTESTINAL: Abdomen soft, non-tender, nondistended. MUSCULOSKELETAL: No cyanosis, or edema. SKIN: Warm and dry. NEURO: No focal neurological deficits. Results - Labs CBC & Chem 7: 05/27/18 12:18 05/27/18 12:18 Labs: Short CBC 05/27/18 Range/Units 12:18 WBC 9.1 (4.0-11.0) th/mm3 Hgb 12.4 (11.6-15.3) gm/dL Hct 36.3 (35.0-46.0) % Plt Count 253 (150-450) th/mm3 BMP 05/27/18 12:18 Sodium 138 Potassium 3.1 L Chloride 104 Carbon Dioxide 26.4 BUN 5 L Creatinine 0.80 Calcium 8.7 - Imaging Impressions Face CT 05/27/18 12:08 CONCLUSION: 1. Findings are most consistent with left facial cellulitis and reactive cervical adenopathy. 2. No evidence for abscess at this time. 3. Bilateral maxillary sinus mucosal disease. Caprini VTE Risk Assessment Caprini VTE Risk Assessment: No/Low Risk (score <= 1) Caprini Risk Assessment Model: Point Value = 1 Point Value = 2 Point Value = 3 Point Value = 5 Age 41-60 Minor surgery BMI > 25 kg/m2 Swollen legs Varicose veins or History of unexplained or recurrent spontaneous Oral contraceptives or hormone replacement Sepsis (< 1 month) Serious lung disease, including pneumonia (< 1 month) Abnormal pulmonary function Acute myocardial infarction Congestive heart failure (< 1 month) History of inflammatory bowel disease Medical patient at bed rest Age 61-74 Arthroscopic surgery Major open surgery (> 45 min) Laparoscopic surgery (> 45 min) Malignancy Confined to bed (> 72 hours) Immobilizing plaster cast Central venous access Age >= 75 History of VTE Family history of VTE Factor V Leiden Prothrombin [id number] Lupus anticoagulant Anticardiolipin antibodies Elevated serum homocysteine Heparin-induced thrombocytopenia Other congenital or acquired thrombophilia Stroke (< 1 month) Elective arthroplasty Hip, pelvis, or leg fracture Acute spinal cord injury (< 1 month) Prophylaxis Regimen: Total Risk Factor Score Risk Level Prophylaxis Regimen 0-1 Low Early ambulation 2 Moderate Order ONE of the following: *Sequential Compression Device (SCD) *Heparin 5000 units SQ BID 3-4 Higher Order ONE of the following medications: *Heparin 5000 units SQ TID *Enoxaparin/Lovenox 40 mg SQ daily (WT < 150 kg, CrCl > 30 mL/min) *Enoxaparin/Lovenox 30 mg SQ daily (WT < 150 kg, CrCl > 10-29 mL/min) *Enoxaparin/Lovenox 30 mg SQ BID (WT < 150 kg, CrCl > 30 mL/min) AND/OR *Sequential Compression Device (SCD) 5 or more Highest Order ONE of the following medications: *Heparin 5000 units SQ TID (Preferred with Epidurals) *Enoxaparin/Lovenox 40 mg SQ daily (WT < 150 kg, CrCl > 30 mL/min) *Enoxaparin/Lovenox 30 mg SQ daily (WT < 150 kg, CrCl > 10-29 mL/min) *Enoxaparin/Lovenox 30 mg SQ BID (WT < 150 kg, CrCl > 30 mL/min) AND *Sequential Compression Device (SCD) Assessment and Plan - Assessment (1) Facial cellulitis Code(s): L03.211 - Cellulitis of face Status: Acute (2) Cellulitis Code(s): L03.90 - Cellulitis, unspecified Status: Acute (3) Acute lymphadenitis Code(s): L04.9 - Acute lymphadenitis, unspecified Status: Acute - Plan 37-year-old female admitted secondary to progressive left facial cellulitis Left facial cellulitis Cover for possible bacterial etiology with vancomycin. No leukocytosis noted thus far, decreasing risk of a bacterial etiology Cover for possible herpes zoster with valacyclovir Patient has a past history of chickenpox as a child, will monitor for progression to rash Monitor for any evolution into rash Naprosyn, loratadine, and prednisone started for swelling and possible hyperreactivity if insect bite was an etiology PRN [place] for pain Nicotine dependence NicoDerm Patient counseled to quit DVT prophylaxis SCDs Patient to ambulate (2) Cellulitis Qualifiers: Site of cellulitis: face Qualified Code(s): L03.211 - Cellulitis of face
[2018-05-27] MEDS ORDERED: Loratadine 10 MG Tablet PO ONE (17:00)
[2018-05-27] MEDS ORDERED: Vancomycin Inj 1,500 MG in Sodium Chlor 0.9% Inj 500 ML IV.SIG ONE (17:00)
[2018-05-27] MEDS: oxyCODONE/Acetaminophen 10/325 Tablet PO PRN ×2 (17:53→21:18)
[2018-05-27] MEDS: Naproxen 250 MG Tablet PO SCH (20:06)
[2018-05-27] MEDS: predniSONE 20 MG Tablet PO SCH (20:06)
[2018-05-27] MEDS: Pregabalin 75 MG Capsule PO SCH (20:06)
[2018-05-27] MEDS: valACYclovir 500 MG Tab PO SCH ×2 (20:06→22:46)
[2018-05-28] MEDS: Vancomycin Inj 1,500 MG in Sodium Chlor 0.9% Inj 500 ML IV.SIG SCH ×2 (04:14→16:38)
[2018-05-28] MEDS: oxyCODONE/Acetaminophen 10/325 Tablet PO PRN ×4 (04:16→23:36)
[2018-05-28] MEDS: valACYclovir 500 MG Tab PO SCH ×5 (04:43→22:41)
[2018-05-28 06:53] LABS: Glomerular Filtration Rate Greater Than 89 mL/min (>89)
[2018-05-28] MEDS: Pregabalin 75 MG Capsule PO SCH ×2 (08:57→20:09)
[2018-05-28] MEDS: Naproxen 250 MG Tablet PO SCH ×2 (08:58→20:08)
[2018-05-28] MEDS: buPROPion 150 MG 12 HR Tablet PO SCH ×2 (08:58→20:09)
[2018-05-28] MEDS: predniSONE 20 MG Tablet PO SCH ×2 (08:58→20:09)
[2018-05-28] MEDS ORDERED: Morphine Sulfate Inj 2 MG/ML Vial IV.PUSH ONE (11:00)
--- NOTE | 2018-05-28 12:34 | P.PNIM ---
Subjective Interval history: No significant improvement in cellulitis/induration, and lymphadenitis. She still complains of severe pain. She had difficulty sleeping last night, she reports now that she takes Ambien at baseline. Physical Exam Vital signs: Vital Signs 05/27/18 15:35 05/27/18 16:00 05/27/18 20:00 Temperature 99.0 F 98.5 F Pulse Rate 73 91 H 70 Respiratory Rate 16 20 16 Blood Pressure 106/62 111/56 L 102/59 L Pulse Oximetry 98 96 100 05/28/18 00:00 05/28/18 08:00 Temperature 97.4 F L 97.0 F L Pulse Rate 73 67 Respiratory Rate 16 16 Blood Pressure 113/64 135/74 Pulse Oximetry 100 99 Intake & Output 05/27/18 05/28/18 05/28/18 18:59 06:59 18:59 Intake Total 50 / 50 1510 / 1510 Balance 50 / 50 1510 / 1510 Weight 81.9 kg 81.9 kg Intake: IV 50 / 50 1030 / 1030 Cleocin 600 mg/NS Premix 600 mg 50 / 50 In 50 ml @ 100 mls/hr IV.SIG ONCE ONE Rx#:[id number] Vancomycin Inj 1,500 MG In NS 1030 / 1030 Inj 500 ML @ 250 mls/hr IV.SIG Q12H ARSEN Rx#:[id number] Oral 480 / 480 Other: # Voids 1 2 Weight On Admission 81.9 kg Narrative: GENERAL: NAD, A&Ox3 HEAD: Induration of left eye significant at left orbit. No scleral edema. Mild edema/induration left cheek, left periauricular, and the upper neck. Lymphadenopathy at left neck. Significant tenderness to palpation at skin of left face. NECK: Supple, trachea midline. No lymphadenopathy. EYES: No scleral icterus or edema. No injection or purulent drainage. CARDIOVASCULAR: Regular rate and rhythm without murmurs, gallops, or rubs. RESPIRATORY: Breath sounds equal bilaterally. No accessory muscle use. GASTROINTESTINAL: Abdomen soft, non-tender, nondistended. MUSCULOSKELETAL: No cyanosis, or edema. SKIN: Warm and dry. NEURO: No focal neurological deficits. Results - Labs CBC & Chem 7: 05/27/18 12:18 05/28/18 06:15 Laboratory Results - last 24 hr 09/05/27/18 05/27/18 12:18 12:18 12:18 ESR 46 H Sodium 138 Potassium 3.1 L Chloride 104 Carbon Dioxide 26.4 Anion Gap 8 BUN 5 L Creatinine 0.80 Estimated GFR 80 L Random Glucose 105 Calcium 8.7 C-Reactive Protein 8.62 H 05/28/18 06:15 ESR Sodium Potassium Chloride Carbon Dioxide Anion Gap BUN Creatinine 0.64 Estimated GFR Greater than 89 Random Glucose Calcium C-Reactive Protein Microbiology 05/27/18 12:19 Blood - Peripheral Aerobic Blood Culture - Preliminary No growth in 1 day 05/27/18 12:19 Blood - Peripheral Anaerobic Blood Culture - Preliminary No growth in 1 day 05/27/18 12:14 Blood - Peripheral Aerobic Blood Culture - Preliminary No growth in 1 day 05/27/18 12:14 Blood - Peripheral Anaerobic Blood Culture - Preliminary No growth in 1 day - Imaging Impressions Face CT 05/27/18 12:08 CONCLUSION: 1. Findings are most consistent with left facial cellulitis and reactive cervical adenopathy. 2. No evidence for abscess at this time. 3. Bilateral maxillary sinus mucosal disease. Assessment and Plan - Assessment (1) Facial cellulitis Code(s): L03.211 - Cellulitis of face Status: Acute (2) Cellulitis Code(s): L03.90 - Cellulitis, unspecified Status: Inactive (3) Acute lymphadenitis Code(s): L04.9 - Acute lymphadenitis, unspecified Status: Inactive - Plan 37-year-old female admitted secondary to progressive left facial cellulitis Left facial cellulitis Lymphadenitis (left neck) Not yet improving Cover for possible bacterial etiology with vancomycin. Cover for possible herpes zoster with valacyclovir Monitor for any evolution into rash Naprosyn, loratadine, and prednisone continued PRN [place] for pain, Morphine for pain Nicotine dependence NicoDerm Patient counseled to quit DVT prophylaxis SCDs Patient to ambulate (2) Cellulitis Qualifiers: Site of cellulitis: face Qualified Code(s): L03.211 - Cellulitis of face
[2018-05-28] MEDS: Morphine Sulfate Inj 2 MG/ML Vial IV.PUSH PRN ×2 (16:39→20:08)
[2018-05-28] MEDS: Loratadine 10 MG Tablet PO SCH (20:12)
[2018-05-29] MEDS ORDERED: Pharmacy Ordered Lab Info OTHER ONE (04:45)
[2018-05-29] MEDS: Vancomycin Inj 1,500 MG in Sodium Chlor 0.9% Inj 500 ML IV.SIG SCH ×2 (05:32→16:17)
[2018-05-29] MEDS: valACYclovir 500 MG Tab PO SCH ×2 (05:48→13:49)
[2018-05-29] MEDS: Morphine Sulfate Inj 2 MG/ML Vial IV.PUSH PRN ×3 (05:49→20:35)
[2018-05-29 06:33] LABS: Baso % (Auto) 0.3 % (0.0-2.0); Eos % (Auto) 0.2 % (0.0-4.0); Hematocrit 35.5 % (35.0-46.0); Hemoglobin 11.9 gm/dL (11.6-15.3); Lymph # (Auto) 1.5 th/mm3 (1.0-4.8); Lymph % (Auto) 16.7 % (9.0-44.0); Mean Corpuscular HGB Conc 33.4 % (32.0-36.0); Mean Corpuscular Volume 89.7 fL (80.0-100.0); Mean Platelet Volume 8.6 fL (7.0-11.0); Mono # (Auto) 0.3 th/mm3 (0.0-0.9); Neut % (Auto) 79.8 % (16.0-70.0); Platelet Count 262 th/mm3 (150-450); Red Blood Count 3.96 mil/mm3 (4.00-5.30); White Blood Count 8.8 th/mm3 (4.0-11.0)
[2018-05-29 07:22] LABS: Alanine Aminotransferase 18 U/L (10-53); Albumin 3.3 g/dL (3.4-5.0); Alkaline Phosphatase 125 U/L (45-117); Anion Gap 9 meq/L (5-15); Aspartate Aminotransferase 12 U/L (15-37); Blood Urea Nitrogen 8 mg/dL (7-18); Calcium 8.5 mg/dL (8.5-10.1); Carbon Dioxide 26.2 meq/L (21.0-32.0); Chloride 109 meq/L (98-107); Glomerular Filtration Rate Greater Than 89 mL/min (>89); Glucose,Random 126 mg/dL (74-106); Potassium 4.4 meq/L (3.5-5.1); Sodium 144 meq/L (136-145); Total Protein 6.8 g/dL (6.4-8.2)
[2018-05-29] MEDS: Naproxen 250 MG Tablet PO SCH ×2 (09:49→20:27)
[2018-05-29] MEDS: Loratadine 10 MG Tablet PO SCH (09:49)
[2018-05-29] MEDS: Pregabalin 75 MG Capsule PO SCH ×2 (09:49→20:28)
[2018-05-29] MEDS: buPROPion 150 MG 12 HR Tablet PO SCH ×2 (09:49→20:28)
[2018-05-29] MEDS: predniSONE 20 MG Tablet PO SCH ×2 (09:49→20:28)
[2018-05-29] MEDS ORDERED: Morphine Sulfate 15 MG IR Tablet PO ONE (10:45)
--- NOTE | 2018-05-29 10:45 | P.PNIM ---
Subjective Interval history: Pain is not improved. She does have improvement in degree of edema. Monitoring progression I suspect this is probably an episode of shingles with a secondary bacterial cellulitis. Physical Exam Vital signs: Vital Signs 05/28/18 12:00 05/28/18 15:34 05/28/18 20:00 Temperature 98.2 F 98.0 F 98.2 F Pulse Rate 83 83 82 Respiratory Rate 16 16 20 Blood Pressure 101/68 122/84 129/71 Pulse Oximetry 95 97 99 05/29/18 00:00 05/29/18 08:00 Temperature 98.1 F 98.3 F Pulse Rate 81 67 Respiratory Rate 20 18 Blood Pressure 127/78 138/88 Pulse Oximetry 98 99 Intake & Output 05/28/18 05/29/18 05/29/18 18:59 06:59 18:59 Intake Total 1235 / 1235 240 / 240 515 / 515 Balance 1235 / 1235 240 / 240 515 / 515 Weight 81.9 kg Intake: IV 515 / 515 515 / 515 Vancomycin Inj 1,500 MG In NS 515 / 515 515 / 515 Inj 500 ML @ 250 mls/hr IV.SIG Q12H ARSEN Rx#:[id number] Oral 720 / 720 240 / 240 Other: # Voids 6 2 # Bowel Movements 0 1 Narrative: GENERAL: NAD, A&Ox3 HEAD: Induration of left eye significant at left orbit. No scleral edema. Mild edema/induration left cheek, left periauricular, and the upper neck. Lymphadenopathy at left neck. Significant tenderness to palpation at skin of left face. NECK: Supple, trachea midline. No lymphadenopathy. EYES: No scleral icterus or edema. No injection or purulent drainage. CARDIOVASCULAR: Regular rate and rhythm without murmurs, gallops, or rubs. RESPIRATORY: Breath sounds equal bilaterally. No accessory muscle use. GASTROINTESTINAL: Abdomen soft, non-tender, nondistended. MUSCULOSKELETAL: No cyanosis, or edema. SKIN: Warm and dry. 1.5 mm blister at left temporal area which today is ulcerated/scab. NEURO: No focal neurological deficits. Results - Labs CBC & Chem 7: 05/29/18 05:37 05/29/18 05:37 Laboratory Results - last 24 hr 05/29/18 05/29/18 05:37 05:37 CBC w Diff Auto diff final WBC 8.8 RBC 3.96 L Hgb 11.9 Hct 35.5 MCV 89.7 MCH 30.0 MCHC 33.4 RDW 13.0 Plt Count 262 MPV 8.6 Neut % (Auto) 79.8 H Lymph % (Auto) 16.7 [place] % (Auto) 3.0 Eos % (Auto) 0.2 Baso % (Auto) 0.3 Neut # (Auto) 7.0 Lymph # (Auto) 1.5 [place] # (Auto) 0.3 Eos # (Auto) 0.0 Baso # (Auto) 0.0 WBC Differential . Differential Comment . Sodium 144 Potassium 4.4 D Chloride 109 H Carbon Dioxide 26.2 Anion Gap 9 BUN 8 Creatinine 0.65 Estimated GFR Greater than 89 Random Glucose 126 H Calcium 8.5 Total Bilirubin 0.2 AST 12 L ALT 18 Alkaline Phosphatase 125 H Total Protein 6.8 Albumin 3.3 L Microbiology 05/27/18 12:19 Blood - Peripheral Aerobic Blood Culture - Preliminary No growth in 1 day 05/27/18 12:19 Blood - Peripheral Anaerobic Blood Culture - Preliminary No growth in 1 day 05/27/18 12:14 Blood - Peripheral Aerobic Blood Culture - Preliminary No growth in 1 day 05/27/18 12:14 Blood - Peripheral Anaerobic Blood Culture - Preliminary No growth in 1 day Assessment and Plan - Assessment (1) Facial cellulitis Code(s): L03.211 - Cellulitis of face Status: Acute (2) Cellulitis Code(s): L03.90 - Cellulitis, unspecified Status: Inactive (3) Acute lymphadenitis Code(s): L04.9 - Acute lymphadenitis, unspecified Status: Inactive - Plan 37-year-old female admitted secondary to progressive left facial cellulitis Shingles Secondary bacterial cellulitis left facial cellulitis Lymphadenitis (left neck) Some improvement seen today Cover for possible bacterial etiology with vancomycin. Cover for possible herpes zoster with valacyclovir Monitor for any evolution into rash Naprosyn, loratadine, and prednisone continued Patient is still requiring IV pain medicines for pain control Discontinue Percocet and start p.o. morphine for pain baseline, IV morphine for breakthrough pain Nicotine dependence NicoDerm Patient counseled to quit DVT prophylaxis SCDs Patient to ambulate (2) Cellulitis Qualifiers: Site of cellulitis: face Qualified Code(s): L03.211 - Cellulitis of face
[2018-05-29] MEDS ORDERED: Morphine Sulfate 15 MG IR Tablet PO PRN (15:00)
[2018-05-29 21:04] VITALS: O2SAT 99
[2018-05-30] MEDS: valACYclovir 500 MG Tab PO SCH ×2 (00:27→05:56)
[2018-05-30] MEDS: Morphine Sulfate Inj 2 MG/ML Vial IV.PUSH PRN ×2 (02:22→09:36)
[2018-05-30] MEDS: Vancomycin Inj 1,500 MG in Sodium Chlor 0.9% Inj 500 ML IV.SIG SCH (05:55)
[2018-05-30 07:45] LABS: Glomerular Filtration Rate Greater Than 89 mL/min (>89)
[2018-05-30] MEDS: buPROPion 150 MG 12 HR Tablet PO SCH (09:35)
[2018-05-30] MEDS: Pregabalin 75 MG Capsule PO SCH (09:35)
[2018-05-30] MEDS: Loratadine 10 MG Tablet PO SCH (09:35)
[2018-05-30] MEDS: Naproxen 250 MG Tablet PO SCH (09:35)
[2018-05-30] MEDS: predniSONE 20 MG Tablet PO SCH (09:35)
[2018-05-30 10:00] VITALS: BP 141/81; PULSE 68; RESP 18; TEMP 98.3
--- NOTE | 2018-05-30 10:41 | P.DS ---
Date of admission: 05/28/18 12:36 Primary care physician: Alvarez Lara Brief History from admission: Mrs. Myrick is a 37-year-old female. She has visited the emergency department yesterday and now today. She reports that she has gradual facial pain, tenderness, and swelling. She feels this may have started as a bug bite just anterior to her left ear. She did not identify a bug, she woke up with a small erythematous and tender area at that site. She has a past history of chickenpox as a child. No leukocytosis is present thus far. She became acutely concerned this morning because her left eye swelled making it difficult to see. All symptoms are on the left side, no symptoms on the right side. Symptoms include the patient's left eye, left cheek, left ear, left posterior scalp, left neck, and left shoulder/trapezius area. This patient smokes approximately 1/2 pack/day. No alcohol abuse. No fevers reported. No other complaints at this time. DS: Diagnosis - Discharge Diagnosis (1) Facial cellulitis Status: Acute (2) Cellulitis Status: Inactive (3) Acute lymphadenitis Status: Inactive DS: Medications - Discharge Medications Prescriptions: morphine 15 mg PO Q6HR PRN #20 tab PRN Reason: Pain 3 to 10 naproxen 250 mg PO BID #4 tab prednisone 10 mg PO DIRECTED #4 tab valacyclovir [Valtrex] 1,000 mg PO Q8HR #21 tab DS: Summary Hospital Course: Ms. Myrick is a 37-year-old female. She reported development of a lesion on her left temporal scalp and subsequent pain and swelling. She thought this could be a bug bite. Alternative etiologies could be shingles or cellulitis. She came to the ER for treatment and was provided with Bactrim and clindamycin. She left and subsequently induration, edema, and lymphadenopathy developed and worsened through time. Her left eye swelled shut. Pain became severe. She came back to the ER for further treatment and management. Bacterial cellulitis as a primary secondary etiology was covered for her and she was also covered for shingles and possible over reaction to a bug bite of present. Through time this appears to be behaving like shingles. Today swelling is decreased and pain is better controlled now. She is medically stable and cleared for discharge home. Should be covered with Valtrex. Bactrim will be continued for possible secondary bacterial cellulitis. She will be continued on Naprosyn and weaned off prednisone. Antihistamines discontinued. Medically stable and cleared for discharge home today. - Time Spent with Patient Total time spent providing and/or coordinating discharge services: Less than 30 minutes - Quality: VTE Deep Vein Thrombosis/Pulmonary Embolism Present on Admission: Yes Exam Vital signs: Vital Signs 05/29/18 12:00 05/29/18 15:34 05/29/18 16:00 Temperature 98.8 F 98.6 F Pulse Rate 64 67 Respiratory Rate 18 20 18 Blood Pressure 136/93 H 141/79 H Pulse Oximetry 99 97 05/29/18 20:00 05/30/18 00:00 05/30/18 08:00 Temperature 97.7 F 98.0 F 98.3 F Pulse Rate 76 72 68 Respiratory Rate 16 16 18 Blood Pressure 132/77 130/73 141/81 H Pulse Oximetry 99 99 99 Intake & Output 05/29/18 05/30/18 05/30/18 18:59 06:59 18:59 Intake Total 1240 / 1240 515 / 515 Balance 1240 / 1240 515 / 515 Weight 82 kg Intake: IV 515 / 515 515 / 515 Vancomycin Inj 1,500 MG In NS 515 / 515 515 / 515 Inj 500 ML @ 250 mls/hr IV.SIG Q12H ARSEN Rx#:[id number] Oral 725 / 725 Other: # Voids 4 3 # Bowel Movements 1 Results Procedures completed during hospitalization: none Labs on day of discharge: Labs from last 24 hours 05/30/18 05/29/18 07:10 05:37 Creatinine 0.65 Estimated GFR Greater than 89 Vancomycin Trough 11.0 H Preliminary micro results at discharge 05/27/18 12:19 Aerobic Blood Culture - Preliminary Blood - Peripheral No growth in 2 days Anaerobic Blood Culture - Preliminary No growth in 2 days 05/27/18 12:14 Aerobic Blood Culture - Preliminary Blood - Peripheral No growth in 2 days Anaerobic Blood Culture - Preliminary No growth in 2 days - Impressions ITS Impressions Face CT 05/27/18 12:08 CONCLUSION: 1. Findings are most consistent with left facial cellulitis and reactive cervical adenopathy. 2. No evidence for abscess at this time. 3. Bilateral maxillary sinus mucosal disease. Discharge Plan - Discharge Disposition Patient Disposition: Discharge Home - Discharge Condition Condition: Stable - Discharge Order Discharge Orders: Discharge Order (Routine); Ordered 05/30/18 Ordered By: Hayden Delcid - Discharge Details Anticipated Discharge Date: 05/30/18 - Physicians Team Primary Care Provider: Alvarez Lara Attending Provider: Hayden Delcid - Rxs /Orders / Referrals /Forms Prescriptions: New morphine 15 mg Tablet 15 mg PO Q6HR PRN (Reason: Pain 3 to 10) Qty: 20 RF: 0 naproxen 250 mg Tablet 250 mg PO BID Qty: 4 RF: 0 prednisone 10 mg Tablet 10 mg PO DIRECTED Qty: 4 RF: 0 valacyclovir [Valtrex] 500 mg Tablet 1,000 mg PO Q8HR Qty: 21 RF: 0 Continue alprazolam [Xanax] 1 mg Tablet 1 mg PO BID bupropion HCl [Wellbutrin XL] 300 mg Tablet Extended Release 24 Hr 300 mg PO QAM pregabalin [Lyrica] 75 mg Capsule 75 mg PO BID sulfamethoxazole-trimethoprim [Bactrim DS] 800-160 mg tablet 1 tab PO BID 10 Days Qty: 20 RF: 0 Discontinued clindamycin HCl 150 mg capsule 300 mg PO QID 10 Days Qty: 80 RF: 0 Referrals: Alvarez Lara [Primary Care Provider] - See Instructions
== END 2018-05-30 11:25 | disposition home or self-care (01) ==
LOC: PHEFT 11:38 → PHEDA 11:38 → PHEFT 16:13 → PH3 16:19
PROVIDERS: ADMIT Hospitalist; ATTEND Hospitalist